=== PATIENT | male | born 1990 | race Caucasian/White ===

== ENCOUNTER 2017-12-18 09:17 | Day surgery (SDC) | payer OTHER ==
[~2017-12-18] VITALS: Ht 190.5 cm; Wt 173.0 kg
[2017-12-18 09:35] VITALS: BP 162/114; PULSE 87; RESP 20; TEMP 98.4; O2SAT 97
[2017-12-18] MEDS ORDERED: SODIUM CHLOR 0.9% 1000 ML INJ 1,000 ML IV SCH (09:45)
[2017-12-18 10:02] LABS: AUTOMATED NEUTROPHIL # 7.9 TH/MM3 (1.8-7.7); BASOPHIL # 0.1 TH/MM3 (0-0.2); BASOPHIL % 0.5 % (0.0-2.0); EOSINOPHIL # 0.1 TH/MM3 (0-0.4); EOSINOPHIL % 1.3 % (0.0-4.0); HEMATOCRIT 45.2 % (39.0-51.0); HEMOGLOBIN 15.2 GM/DL (13.0-17.0); LYMPH % 18.1 % (9.0-44.0); LYMPHOCYTE # 2.1 TH/MM3 (1.0-4.8); MEAN CELL VOLUME 87.8 FL (80.0-100.0); MEAN CORPUSCULAR HEMOGLOBIN 29.5 PG (27.0-34.0); MEAN CORPUSCULAR HGB CONC 33.6 % (32.0-36.0); MEAN PLATELET VOLUME 8.4 FL (7.0-11.0); MONO % 10.8 % (0.0-8.0); MONOCYTE # 1.2 TH/MM3 (0-0.9); NEUT % 69.3 % (16.0-70.0); PLATELET COUNT 226 TH/MM3 (150-450); RED BLOOD COUNT 5.15 MIL/MM3 (4.50-5.90); RED CELL DISTRIBUTION WIDTH 13.7 % (11.6-17.2); WHITE BLOOD COUNT 11.4 TH/MM3 (4.0-11.0)
[2017-12-18 10:13] LABS: BICARBONATE 22.5 MEQ/L (21.0-32.0); CALCIUM 8.9 MG/DL (8.5-10.1); CREATININE 1.13 MG/DL (0.60-1.30)
[2017-12-18 11:20] VITALS: BP 137/69; PULSE 74; RESP 18; TEMP 98.6; O2SAT 97
--- NOTE | 2017-12-18 11:37 | PD.RAD ---
Post Procedure Progress Note Pre Procedure Diagnosis: (1) Pseudotumor cerebri Post Procedure Diagnosis: (1) Pseudotumor cerebri Procedure Date: Dec 18, 2017 Supervising Radiologist: Bijan Norman JR Proceduralist/Assist: RT Mendez(R), RT Caden(R) Anesthesia: Local Plan of Activity Patient to Unit: ROPU Patient Condition: Good See PACS Report for procedural detail/treatment Spinal Procedure Lumbar Puncture L4-L5 Fluid Removal (CCs): 21 Fluid Description: Clear Puncture Time: 11:02 Findings: Opening pressure: 38 cmH2O Serial removal of a total of 21 mL resulted in closing pressure of 12 cmH2O Jr. Emerson,Bijan Dodson MD Dec 18, 2017 11:37
[2017-12-18 13:16] VITALS: BP 156/78; PULSE 77; RESP 18; O2SAT 99
[2017-12-18 13:47] LABS: SUPERNATE COLOR TUBE #1 CLEAR (CLEAR); VOLUME TUBE # 1 6.8 ML
[2017-12-18 13:48] LABS: CSF LYMPHOCYTES 100 %; CSF NEUTROPHILS 0 %; RBC TUBE #1 2 /MM3; WBC TUBE #1 2 /MM3 (0-10)
[2017-12-18 13:50] LABS: CSF LYMPHOCYTES 100 %; CSF NEUTROPHILS 0 %; RBC TUBE #4 1 /MM3; WBC TUBE #4 1 /MM3 (0-10)
--- NOTE | 2017-12-19 08:16 | RADRPT ---
EXAM DATE: 12/18/2017 11:39 AM EDT AGE/SEX: 27 years / Male INDICATIONS: Patient presents with headaches in need of lumbar puncture. CLINICAL DATA: This is the patient's initial encounter. Patient reports that signs and symptoms have been present for 3 weeks and indicates a pain score of 0/10. MEDICAL/SURGICAL HISTORY: . Headaches . Left knee ACLRight Shoulder COMPARISON: No prior [facility] exams available for comparison. FLUORO TIME (min): 1.3 IMAGE SERIES: 1 ACCESS SITE: L4-5 LUMBAR PUNCTURE TIME: 11:02 hours OPENING PRESSURE: 38 cm of water CLOSING PRESSURE: 12 cm of water FLUID: Total volume of 21 cc of clear fluid was removed. . . PROCEDURE: 1. Fluoroscopic guided lumbar puncture. 2. Recording of opening pressure. The risks, benefits and alternatives to the procedure were explained and verbal and written consent w as obtained. The site was prepped in sterile fashion. Full sterile technique was used, including ca p, mask, sterile gloves and gown and a large sterile sheet. Hand hygiene and 2% chlorhexidine and/or betadine/alcohol prep was utilized per protocol for cutaneous antisepsis. The skin and subcutaneous tissues were infiltrated with local anesthetic solution. With fluoroscopic guidance the lumbar thecal sac was punctured at the above level described above and the opening pressure was recorded. A stage removal of CSF fluid was performed to decrease the pressu re to less than 20 cm H2O as per the ordering physician's order. A total of 21 mL of fluid was remove d and the final pressure was 12 cm H2O. The patient tolerated the procedure well and there were no complications. CONCLUSION: 1. Uncomplicated fluoroscopically guided lumbar puncture with pressures as above. Electronically signed by: Bijan Norman MD 12/19/2017 8:14 AM EDT
== END 2017-12-18 13:19 | disposition home or self-care (01) ==
LOC: HROP 09:17 → HRIP 09:23 → HROP 13:19
PROVIDERS: ATTEND Specialist
DX: G93.2 Benign intracranial hypertension (principal); R51 Headache; Z01.818 Encounter for other preprocedural examination
CPT/HCPCS: 62270; 77003; 80048; 82945; 84157; 85025; 85610; 85730; 87015; 87070; 87102; 87116; 87205; 87206; 89051; J7030